=== PATIENT | male | born 1955 | race Caucasian/White ===

== ENCOUNTER 2016-11-04 15:19 | Outpatient (CLI) | payer OTHER ==
[~2016-11-04] VITALS: Ht 182.9 cm; Wt 96.0 kg
[2016-11-04 15:29] VITALS: BP 98/62; PULSE 89; RESP 16
[2016-11-04] MEDS ORDERED: FURO40TA4 PO (15:34)
[2016-11-04] MEDS ORDERED: FOLI-49 PO (15:34)
[2016-11-04] MEDS ORDERED: THIA100T56 PO (15:34)
[2016-11-04] MEDS ORDERED: LACT10SO53 PO (15:35)
[2016-11-04] MEDS ORDERED: VITA1TAB13 PO (15:35)
[2016-11-04] MEDS ORDERED: METR500T PO (15:38)
[2016-11-04] MEDS ORDERED: LEVO500T10 PO (15:38)
--- NOTE | 2016-11-04 16:38 | PN ---
Date/Time of Note Date/Time of Note DATE: 11/04/16 TIME: 16:32 Outpatient Progress Note Chief Complaint Cirrhosis/malnutrition/encephalopathy/aspiration syndrome HPI Cirrhosis/patient has cirrhosis of liver, patient has alcohol-related cirrhosis , patient will used to drink, patient has stopped drinking, patient has also ascites, patient was recently hospitalized and the patient had abdominal paracentesis, patient has no abdominal distention or pain, Malnutrition/patient has malnutrition, low protein Encephalopathy/patient was hospitalized with encephalopathy, patient on lactulose, patient awake alert, serum ammonia normal, Aspiration syndrome/patient has aspiration syndrome, patient had aspiration pneumonitis, at present no cough expectoration or wheezing, no fever chill, Review of Systems Const: No Fever, no chills, no Wt. loss, no Fatigue, normal appetite, no diaphoresis. Eyes: No pain, no discharge, no redness, no visual change, no foreign body. ENT: No pain, no bleeding, no congestion, no sore throat, no dysphagia, no discharge or rhinitis. Lymph: No adenopathy, no tender nodes, no lymphedema. Resp: No SOB, no cough, no sputum, no wheezing, no chest pain. CV: No chest pain, no palpitaions, no LAW, no PND, no edema. GI: Normal appetite, no pain, minimal abdominal distention, no nausea, no vomiting, no diarrhea, no blood, no constipation. : No frequency, no urgency, no dysuria, no hematuria, no flank pain, no discharge, no bleeding. Musc: , no back pain, no neck pain, no knee pain, no restricted ROM. Skin: No rash, no skin lesions, no erythema, no laceration, no bruising, no pruritus. Neuro: No CROW, no dizziness, no syncope, no seizure, no focal-weakness. Endo: No polyuria, no polydypsia, no dry-skin, no temp-intolerance. Psych: No hallucinations, no depression, no anxiety, no suicidal ideation. Ext: No edema, no pain, no ulcer, no weakness. Physical Exam Vital Signs Date Time Temp Pulse Resp B/P Pulse Ox O2 Delivery O2 Flow Rate FiO2 11/04/16 15:29 99.3 89 16 98/62 Room Air General Appearance: A 60 year-old male who appears well-developed, well- nourished, in no acute distress. HEENT: Head normocephalic, atraumatic. Pupils equal, round, reactive to light and accommodate. Sclerae are slightly jaundice. Nasal turbinates pink without erythema or nasal discharge. Mucous membranes pink and moist without lesions. Oropharynx clear without any exudate or discharge. NECK: Supple. Trachea midline, No thyromegaly, No cervical lymphadenopathy, No mass, No carotid bruits, No JVD, Carotid pulses 2+ bilaterally. PULMONARY: Clear to auscultaion bilaterally, No retractions, Chest expansion symmetric bilaterally, no rales, no ronchi, no dulness on percussion. CARDIAC: Normal SI and S2, Regular rate and rythm, no murmur, gallop, or rub. GASTROINTESTINAL: Abdomen is soft, non-tender minimal ascites,, Non Rigid, No distention, Positive bowel sounds x4 quadrants, Liver normal. SKIN: Warm, dry, no rash, no bruise, no echmosis. EXTREMITIES: Bilateral lower extremities normal, no edema, no phlabitus, pulse palpable, no contracture. MUSCULOSKELETAL: Spine Normal, Non-tender, Normal range of motion, No swelling, no deformity, no clubbing, or cyanosis, the patient has no edema to bilateral lower extremities, dorsalis pedis pulses palpable bilaterally. NEUROLOGIC: The patient is awake, alert, oriented, responding to yes/no questions appropriately, moving all extremities, cranial nerve intact, normal strenght, normal power, normal coordination, normal gait. PMH I was unable to get into allergy: Allergy none Respiratory failure/cirrhosis with ascites/severe malnutrition/metabolic encephalopathy/aspiration pneumonia Social Hx No smoking no drinking at present, Family Hx Noncontributory Assessment/Plan Impression Cirrhosis with ascites improved Malnutrition Encephalopathy Aspiration syndrome Plan Patient education done and a family education done about cirrhosis and related disease, patient encouraged to follow with the primary care physician, patient still does not have primary care physician at present, Patient has all medication and supply, patient encouraged to continue all medication, and if he runs out of medication we will refill it, Watch for fever sepsis bleeding etc., patient's daughter work at [employer], We will see the patient in couple of weeks, will try to find a primary care physician, Medications Home Meds Reported Medications Levofloxacin* (Levofloxacin*) 500 Mg Tablet, 500 MG PO DAILY, TAB 11/04/16 Metronidazole* (Flagyl*) 500 Mg Tablet, 500 MG PO TID, TAB 11/04/16 Lactulose (Constulose) 10 Gm/15 Ml Solution, 10 GM PO 11/04/16 Vitamin B Complex (BALANCED B-100) 1 Each Tablet, 1 EACH PO, TAB 11/04/16 Thiamine* (Vitamin B-1*) 100 Mg Tablet, 100 MG PO DAILY, TAB 11/04/16 Furosemide* (Furosemide*) 40 Mg Tablet, 40 MG PO DAILY, TAB 11/04/16 Folic Acid* (Folic Acid*) 1 Mg Tablet, 1 MG PO DAILY, TAB 11/04/16 AXEL VIEIRA MD Nov 04, 2016 16:38
== END 2016-11-04 17:02 | disposition home or self-care (01) ==
LOC: DCC 15:19
PROVIDERS: ATTEND Internal Medicine
DX: K70.31 Alcoholic cirrhosis of liver with ascites (principal); E46 Unspecified protein-calorie malnutrition; G93.40 Encephalopathy, unspecified

== ENCOUNTER 2016-11-18 15:46 | Outpatient (CLI) | payer OTHER ==
[~2016-11-18] VITALS: Ht 182.9 cm; Wt 83.0 kg
[~2016-11-18 15:46] MED LIST: FOLI-49 PO; FURO40TA4 PO; LACT10SO53 PO; LEVO500T10 PO; METR500T PO; THIA100T56 PO; VITA1TAB13 PO
[2016-11-18 15:47] VITALS: BP 112/68; PULSE 92; RESP 18; Ht 182.9 cm; Wt 83.0 kg
--- NOTE | 2016-11-18 16:03 | PN ---
Date/Time of Note Date/Time of Note DATE: 11/18/16 TIME: 15:58 Outpatient Progress Note Chief Complaint Cirrhosis/malnutrition/encephalopathy HPI Cirrhosis/patient has cirrhosis of liver, patient has ascites, patient has bilateral ankle edema, no nausea vomiting, no hematemesis or melena, patient was recently hospitalized, Malnutrition/patient has malnutrition, low protein, Encephalopathy/patient has hepatic encephalopathy, improving, patient on lactulose, Review of Systems Const: No Fever, no chills, no Wt. loss, no Fatigue, normal appetite, no diaphoresis. Eyes: No pain, no discharge, no redness, no visual change, slightly icteric, no foreign body. ENT: No pain, no bleeding, no congestion, no sore throat, no dysphagia, no discharge or rhinitis. Lymph: No adenopathy, no tender nodes, no lymphedema. Resp: No SOB, no cough, no sputum, no wheezing, no chest pain. CV: No chest pain, no palpitaions, no LAW, no PND, no edema. GI: Slightly poor appetite, no pain, no nausea, no vomiting, patient has abdominal distention, and ascites present, no diarrhea, no blood, no constipation. : No frequency, no urgency, no dysuria, no hematuria, no flank pain, no discharge, no bleeding. Musc: No back pain, no neck pain, no knee pain, no restricted ROM. Skin: No rash, no skin lesions, no erythema, no laceration, no bruising, no pruritus. Neuro: No CROW, no dizziness, no syncope, no seizure, no focal-weakness. Endo: No polyuria, no polydypsia, no dry-skin, no temp-intolerance. Psych: No hallucinations, no depression, no anxiety, no suicidal ideation. Ext: Bilateral ankle edema, no pain, no ulcer, no weakness. Physical Exam Vital Signs Date Time Temp Pulse Resp B/P Pulse Ox O2 Delivery O2 Flow Rate FiO2 11/18/16 15:47 98.4 92 18 112/68 96 Room Air General Appearance: A [60 year-old male who appears well-developed, well- nourished, in no acute distress. HEENT: Head normocephalic, atraumatic. Pupils equal, round, reactive to light and accommodate. Sclerae are jaundice. Nasal turbinates pink without erythema or nasal discharge. Mucous membranes pink and moist without lesions. Oropharynx clear without any exudate or discharge. NECK: Supple. Trachea midline, No thyromegaly, No cervical lymphadenopathy, No mass, No carotid bruits, No JVD, Carotid pulses 2+ bilaterally. PULMONARY: Clear to auscultaion bilaterally, No retractions, Chest expansion symmetric bilaterally, no rales, no ronchi, no dulness on percussion. CARDIAC: Normal SI and S2, Regular rate and rythm, no murmur, gallop, or rub. GASTROINTESTINAL: Abdomen is soft, non-tender, Non Rigid, No distention, Positive bowel sounds x4 quadrants, Liver normal. SKIN: Warm, dry, no rash, no bruise, no echmosis. EXTREMITIES: Bilateral lower extremities 2+ edema, no phlabitus, pulse palpable , no contracture. MUSCULOSKELETAL: Spine Normal, Non-tender, Normal range of motion, No swelling, no deformity, no clubbing, or cyanosis, the patient has no edema to bilateral lower extremities, dorsalis pedis pulses palpable bilaterally. NEUROLOGIC: The patient is awake, alert, oriented, responding to yes/no questions appropriately, moving all extremities, cranial nerve intact, normal strenght, normal power, normal coordination, normal gait. PMH Cirrhosis/malnutrition/encephalopathy/aspiration syndrome No change Social Hx No change Family Hx No change Assessment/Plan Impression Cirrhosis/malnutrition/encephalopathy/aspiration syndrome Plan Patient education done about cirrhosis, and family explained, slight fluid restriction, patient has significant ascites and bilateral ankle edema, patient was started on Lasix, We will check electrolytes and ammonia level, Patient encouraged to follow with the primary care physician, Patient to stay away from alcohol and eat proper diet I will add Aldactone 25 mg daily, #30 and will continue Lasix as ordered, Medications Home Meds Reported Medications Lactulose (Constulose) 10 Gm/15 Ml Solution, 10 GM PO 11/04/16 Vitamin B Complex (BALANCED B-100) 1 Each Tablet, 1 EACH PO, TAB 11/04/16 Thiamine* (Vitamin B-1*) 100 Mg Tablet, 100 MG PO DAILY, TAB 11/04/16 Furosemide* (Furosemide*) 40 Mg Tablet, 40 MG PO DAILY, TAB 11/04/16 Folic Acid* (Folic Acid*) 1 Mg Tablet, 1 MG PO DAILY, TAB 11/04/16 Discontinued Reported Medications Levofloxacin* (Levofloxacin*) 500 Mg Tablet, 500 MG PO DAILY, TAB 11/04/16 Metronidazole* (Flagyl*) 500 Mg Tablet, 500 MG PO TID, TAB 11/04/16 AXEL VIEIRA MD Nov 18, 2016 16:03
== END 2016-11-18 17:00 | disposition home or self-care (01) ==
LOC: DCC 15:46
PROVIDERS: ATTEND Internal Medicine
DX: K74.60 Unspecified cirrhosis of liver (principal); G93.40 Encephalopathy, unspecified; E46 Unspecified protein-calorie malnutrition